=== PATIENT | female | born 1985 | race Asian ===

== ENCOUNTER 2017-06-27 17:58 | Emergency (ER) | payer MEDICAID ==
[2017-06-27] MEDS ORDERED: NS 1,000 ML IV ONE ×2 (18:54→19:06)
--- NOTE | 2017-06-27 19:06 | EDPHY ---
H & P Time Seen by Provider: 06/27/17 18:32 HPI/ROS: HPI Vomiting, , dehydrated. 31-year-old female currently at 11 weeks. She has had hyper emesis gravidarum. She does not like taking medications and has not been taking Zofran or Phenergan. She reports that she was seen by her primary care physician at [facility] earlier today. She reports that she has had 2 episodes of nonbilious, nonbloody vomiting today. She was able to keep fluids down earlier this afternoon but she spoke with her primary care physician again this evening. This person was concerned that she was getting dehydrated recommended that she come to the emergency department for IV fluid. She has had no abdominal pain. Denies any vaginal bleeding. No other complaints. ROS: Constitutional: No fever, no chills. No weakness. Eyes: No discharge. No changes in vision. ENT: No sore throat. No nasal congestion or rhinorrhea. Respiratory: No cough. No shortness of breath. Cardiac: No chest pain, no palpitations. Gastrointestinal: No abdominal pain, as above, no diarrhea. Genitourinary: No hematuria. No dysuria or increased frequency with urination. Musculoskeletal: No back pain. No neck pain. No myalgias or arthralgias. Skin: No rashes. Neurological: No headache. No focal weakness or altered sensation. Past medical history: No significant past medical history. She takes vitamins only. Social history: Nonsmoker. She is . Her is present in the room. No alcohol. Physical Exam: General Appearance: Alert, no distress. This patient is responding to questions appropriately and in full sentences. This patient appears well- hydrated and well-nourished. Eyes: Pupils equal and round no pallor or injection. No lid edema, erythema or injection. Respiratory: There are no retractions, lungs are clear to auscultation with good air movement bilaterally. Cardiovascular: Regular rate and rhythm. No murmur. Gastrointestinal: Abdomen is soft and nontender, no masses, bowel sounds normal. No focal tenderness at McBurney's point. No Mcgill sign. Neurological: Motor sensory function is grossly intact. Cranial nerves are normal. Gait is normal. Skin: Warm and dry, no rashes. Musculoskeletal: Neck is supple and nontender. Extremities are symmetrical. All joints range without pain or impingement. Psychiatric: No agitation. No depression. Database: EKG: Imaging: Procedures: Emergency department course: Vital signs reviewed and are normal. An IV was placed. She will be started on IV normal saline with 1-2 L to be given over the next 1-2 hours. She declines antiemetics. Basic metabolic panel reviewed. No abnormalities. 8:00 p.m., the patient has received 2 L of IV normal saline. She feels better. She is able to tolerate oral fluids. Her vital signs have remained normal. I explained to her that Zofran is category B for . She again declines antiemetics. She feels comfortable going home and is requesting discharge with her . She will follow up with her [facility] physician tomorrow. Return to emergency department precautions have been reviewed with her. All of her questions were answered. She was discharged in good condition with her . Differential Diagnosis: The differential diagnosis on this patient includes but is not limited to hyperemesis gravidarum, dehydration. This represents a partial list of diagnoses considered. These considerations are based on history, physical exam , past history, reassessment and diagnostic testing. Smoking Status: Never smoked Constitutional: Initial Vital Signs Temperature (C) 36.7 C 06/27/17 18:09 Heart Rate 82 06/27/17 18:09 Respiratory Rate 18 06/27/17 18:09 Blood Pressure 94/68 L 06/27/17 18:09 O2 Sat (%) 98 06/27/17 18:09 O2 Delivery Mode Room Air Allergies/Adverse Reactions: No Known Allergies Allergy (Unverified 06/27/17 18:08) Home Medications: Medication Instructions Recorded Ondansetron Odt [Zofran Odt 4 mg 4 mg PO Q4PRN PRN #10 tab 06/27/17 (*)] 06/27/17 Vitamins A and D 06/27/17 Medical Decision Making - Data Points Laboratory Results: Laboratory Results 06/27/17 18:52 06/27/17 18:52 Sodium 137 mEq/L mEq/L (135-145) Potassium 4.2 mEq/L mEq/L (3.5-5.2) Chloride 104 mEq/L mEq/L (97-110) Carbon Dioxide 24 mEq/l mEq/l (22-31) Anion Gap 9 mEq/L mEq/L (8-16) BUN 7 mg/dL mg/dL (7-23) Creatinine 0.5 mg/dL L mg/dL (0.6-1.0) Estimated GFR > 60 Glucose 86 mg/dL mg/dL (70-100) Calcium 9.3 mg/dL mg/dL (8.5-10.4) Medications Given: Discontinued Medications Sodium Chloride (Ns) 1,000 mls @ 0 mls/hr IV ONCE ONE PRN Reason: Wide Open Stop: 06/27/17 18:55 Last Admin: 06/27/17 19:24 Dose: 1,000 mls Sodium Chloride (Ns) 1,000 mls @ 0 mls/hr IV EDNOW ONE; Wide Open PRN Reason: Protocol Stop: 06/27/17 19:07 Last Admin: 06/27/17 19:25 Dose: 1,000 mls Departure - Departure Disposition: Home, Routine, Self-Care Clinical Impression: Hyperemesis gravidarum Condition: Good Instructions: Hyperemesis Gravidarum (ED) Additional Instructions: Read and follow provided instructions. Follow-up with your primary care physician tomorrow as discussed for re- evaluation. Take medication as prescribed for nausea. Return to the emergency department for worsening symptoms, vomiting and inability to keep fluids down despite medications, abdominal pain, vaginal bleeding or other serious concerns. Referrals: LELIA HASTINGS [Other] - As per Instructions Prescriptions: Ondansetron Odt [Zofran Odt 4 mg (*)] 4 mg PO Q4PRN PRN #10 tab PRN Reason: For Nausea & Vomiting
[2017-06-27 20:17] VITALS: BP 119/85; PULSE 98; RESP 16; TEMP 98.6; O2SAT 100
== END 2017-06-27 20:13 | disposition home or self-care (01) ==
DX: O21.0 Mild hyperemesis gravidarum (principal); E86.9 Volume depletion, unspecified; Z3A.11 11 weeks gestation of pregnancy